=== PATIENT | female | born 1990 | race Caucasian/White ===

== ENCOUNTER 2020-04-03 14:49 | Observation (INO) ==
[2020-04-03] MEDS ORDERED: Naloxone 0.4 MG/ML INJ IVP PRN ×2 (15:56→20:24)
[2020-04-03] MEDS ORDERED: *HR* HYDROmorphone (PF) 1 MG/ML SYRINGE IVP PRN (15:58)
[2020-04-03] MEDS ORDERED: 0.9 % Sodium Chloride 1,000 ML IVC SCH ×2 (16:00→20:30)
[2020-04-03] MEDS ORDERED: *HR* LORazepam 2 MG/ML VIAL IVP PRN (16:01)
[2020-04-03 18:04] LABS: Influenza A PCR Negative (Negative); Influenza B PCR Negative (Negative); Resp. Syncytial Virus PCR Negative (Negative)
[2020-04-03 18:09] LABS: SARS-CoV-2 by PCR (In House) Negative (Negative)
[2020-04-03] MEDS ORDERED: *HR* OxyCODONE/APAP 5/325 TABLET PO PRN (20:25)
[2020-04-03] MEDS: *HR* HYDROmorphone (PF) 1 MG/ML SYRINGE IVP PRN (20:46)
[2020-04-04 05:03] LABS: Basophils % 0.5 %; Eosinophils # 0.2 K/mcL (0.0-0.6); Eosinophils % 2.9 %; Hematocrit 31.5 % (35.3-44.9); Hemoglobin 10.3 g/dL (11.5-15.4); Immature Granulocytes % 0.2 % (0-4); Lymphocytes % 36.5 %; Mean Corpuscular HGB Conc 32.7 g/dL (31.6-35.5); Mean Corpuscular Hemoglobin 31.4 pg (28.0-33.3); Mean Platelet Volume 10.2 fL (9.4-12.4); Monocytes # 0.4 K/mcL (0.0-1.3); Monocytes % 6.7 %; Platelet Count 204 K/mcL (140-400); Red Blood Count 3.28 M/mcL (3.82-4.97); Red Cell Distribution Width 11.8 % (11.5-14.5); Segmented Neutrophils % 53.2 %; White Blood Count 5.6 K/mcL (4.3-11.1)
[2020-04-04] MEDS: *HR* HYDROmorphone (PF) 1 MG/ML SYRINGE IVP PRN ×2 (06:52→07:56)
[2020-04-04] MEDS ORDERED: *HR* HYDROmorphone (PF) 1 MG/ML SYRINGE IVP ONE (08:36)
[2020-04-04] MEDS ORDERED: *HR* LORazepam 1 MG TABLET PO ONE (08:36)
[2020-04-04] MEDS ORDERED: *HR* Belladonna Alkaloids/Opium 30 MG RECTAL SUPPOSITORY RC ONE (10:43)
[2020-04-04] MEDS ORDERED: *HR* Propofol 200 MG/20 ML VIAL IVP ONE (10:53)
[2020-04-04] MEDS ORDERED: Ondansetron 4 MG/2 ML VIAL ONE (10:53)
[2020-04-04] MEDS ORDERED: *HR* Midazolam HCl 2 MG/2 ML VIAL ONE ×2 (10:53→11:00)
[2020-04-04] MEDS ORDERED: Dexamethasone 4 MG/ML VIAL ONE (10:53)
[2020-04-04] MEDS ORDERED: *HR* Rocuronium Bromide 50 MG/5 ML VIAL ONE (10:53)
[2020-04-04] MEDS ORDERED: *HR* FentaNYL (PF) 100 MCG/2 ML VIAL ONE (10:53)
[2020-04-04] MEDS ORDERED: Lidocaine -MPF 2% 2 ML VIAL ONE (10:53)
[2020-04-04] MEDS ORDERED: *HR* Succinylcholine 200 MG/10 ML VIAL IVP ONE (10:53)
[2020-04-04] MEDS ORDERED: Acetaminophen IV 1,000 MG/100 ML BAG IVPB ONE (10:56)
[2020-04-04] MEDS ORDERED: Famotidine 20 MG/2 ML VIAL ONE (10:56)
[2020-04-04] MEDS ORDERED: *HR* HYDROMORPHONE 2 MG/ML VIAL ONE (11:43)
[2020-04-04] MEDS ORDERED: Ketorolac 30 MG/ML VIAL ONE (12:36)
[2020-04-04] MEDS: *HR* HYDROmorphone PF 0.5 MG/0.5 ML SYRINGE IVP PRN ×2 (13:02→13:12)
[2020-04-04] MEDS ORDERED: *HR* Labetalol 20 MG/4 ML SYRINGE IVP PRN (13:18)
[2020-04-04] MEDS ORDERED: *HR* OxyCODONE Immed Rel 5 MG TABLET PO PRN (13:18)
[2020-04-04] MEDS ORDERED: *HR* HYDROmorphone 2 MG TABLET PO PRN (13:18)
[2020-04-04] MEDS ORDERED: *HR* OxyCODONE/APAP 5/325 TABLET PO PRN (14:01)
[2020-04-04 15:19] VITALS: BP 132/71
== END 2020-04-04 15:52 | disposition home or self-care (01) ==
LOC: 1NENUOBS → 1NENUPED 04-04 13:49
PROVIDERS: ADMIT Obstetrics & Gynecology; ATTEND Obstetrics & Gynecology